=== PATIENT | male | born 1990 | race Caucasian/White ===

== ENCOUNTER 2016-10-27 10:17 | Day surgery (SDC) | payer OTHER ==
[~2016-10-27] VITALS: Ht 185.4 cm; Wt 97.5 kg
[~2016-10-27 10:17] MED LIST: CEPHALEXIN500 MG PO; CREATINE 50005000 MG PO; LO-DOSE ASPIRIN81 M2 PO; OXYCODONE HCL10 MG PO; PROTEIN POWDER454 G1 PO
[2016-10-27 10:44] VITALS: BP 134/85
[2016-10-27 16:53] VITALS: BP 126/74
[2016-10-27 17:40] VITALS: BP 117/75
== END 2016-10-27 17:47 | disposition home or self-care (01) ==
LOC: SDC 10:17
PROC: 0QPH04Z Removal of Internal Fixation Device from Left Tibia, Open Approach (ICD-10-PCS; principal; 2016-10-27)
DX: T84.84XA Pain due to internal orthopedic prosthetic devices, implants and grafts, initial encounter (principal)
CPT/HCPCS: 73600; 76000; 93005; J0690; J1100; J1170; J2250; J2405; J3010